=== PATIENT | male | born 1995 ===

== ENCOUNTER 2017-05-29 20:43 | Emergency (ER) | payer OTHER ==
[~2017-05-29] VITALS: Ht 170.2 cm; Wt 77.8 kg
[2017-05-29 20:55] VITALS: TEMP 36.8; Ht 170.2 cm; Wt 77.8 kg
[2017-05-29] MEDS ORDERED: ALBUT/IPRATROP 3MG/0.5MG NEB 3 ML VIAL INH STA (22:11)
--- NOTE | 2017-05-29 22:16 | EMERGENCY ROOM VISIT NOTE ---
History First contact with patient: 21:36 Chief Complaint: ILLNESS Stated Complaint: SORE THROAT, NAUSEA, CHEST CONGESTION History of Present Illness The patient is a 22 year old male who presents to the Emergency Room via private vehicle "sore throat, nausea, chest congestion". The patient states that since yesterday he has been experiencing a sore throat which then progressed into cough and chest congestion. He states that cough is minimally productive. There is painful swallowing with food and water. He feels nauseated with food intake. No abdominal pain. He notes the cough is productive of that consistent with clear mucus. It is episodic, and keeps up at night. He has a nebulizer but no refills for the vials. He notes when he takes a deep breath there is congestion. There is no chest pain, shortness of breath or dyspnea on exertion. There is also clear rhinorrhea. He denies any otalgia, tenderness, headache, fevers or chills. Review of Systems A complete 10-point Review of Systems was discussed with the patient, with pertinent positives and negatives listed in the History of Present Illness. All remaining Review of Systems questions can be considered negative unless otherwise specified. Past Medical/Surgical History Reactive airway Family History No pertinent. Social History Smoking Status: Current Every Day Smoker Patient is a [employer] student and lives locally. Current/Historical Medications Scheduled Ipratropium-Albuterol (Duoneb), 1 TREATMENT INH Q6 Scheduled PRN Benzonatate (Tessalon Perles), 100 MG PO TID PRN for Cough Physical Exam Vital Signs Date Time Temp Pulse Resp B/P (MAP) Pulse Ox O2 Delivery O2 Flow Rate FiO2 05/29/17 23:51 96 18 130/79 99 05/29/17 20:55 36.8 96 18 130/79 99 Room Air Physical Exam VITAL SIGNS - Vital signs and nursing notes were reviewed. Stable. GENERAL -22-year-old male appearing his stated age who is in no acute distress. Communicates well with provider and answers questions appropriately. SKIN - Without rashes. No meningeal or petechial rash. HEAD - NC/AT. EYES - PERRL with EOMI bilaterally. Sclera anicteric. EARS - No deformities of external structures noted on gross examination bilaterally. External auditory canals without discharge or otorrhea. Tympanic membranes pearly avelar without retraction or bulging. No fluid or purulent material visualized behind the TM. Handle of malleus, umbo, cone of light, pars tensa/flaccid all easily visualized. NOSE - Midline and without cyanosis. No epistaxis or purulent drainage noted. MOUTH/OROPHARYNX - Without perioral cyanosis. Buccal mucosa pink and moist and without leukoplakia. Tongue midline with equal elevation of palate bilaterally. No tonsillar hypertrophy, erythema, or exudates noted. Fair dentition noted. NECK - Neck with FROM. Supple to palpation. No lymphadenopathy noted. No nuchal rigidity. LUNGS - Chest wall symmetric without accessory muscle use, intercostals retractions, or central cyanosis. Normal vesicular breath sounds CTA B/L. No wheezes, rales, or rhonchi appreciated. CARDIAC - RRR with S1/S2. No murmur, rubs, or gallops appreciated. ABDOMEN - Abdominal contour normal without pulsations or visible masses. BS normoactive all four quadrants. No tenderness, palpable masses, hepatosplenomegaly, or ascites noted. EXTREMITIES - No clubbing or peripheral cyanosis. No pretibial edema present. + 5/5 strength noted in UE/LE bilaterally. NEUROLOGIC - Cranial nerves II through XII grossly intact. Sensory intact to light touch throughout. PSYCH - A&Ox3 and cooperates fully with examiner. Pt is very pleasant and interacts well with examiner. Medical Decision & Procedures ER Provider Diagnostic Interpretation: TWO VIEW CHEST CLINICAL HISTORY: Chest congestion. FINDINGS: PA and lateral chest radiographs are obtained. No prior studies are available for comparison at the time of dictation. The cardiomediastinal silhouette is unremarkable. The lungs and pleural spaces are clear. An accessory azygous fissure is incidentally noted. There is no pneumothorax. The bony thorax appears intact. IMPRESSION: No active disease in the chest. Electronically signed by: Bobby Puri M.D. 05/29/2017 10:46 PM Dictated Date/Time: 05/29/2017 10:46 PM Medications Administered Medications (Trade) Dose Ordered Sig/Aayush Route Start Time Stop Time Status Last Admin Dose Admin Albuterol/ Ipratropium (Duoneb) 3 ml NOW STAT INH 05/29/17 22:11 05/29/17 22:12 DC 05/29/17 22:19 3 ML Medical Decision Patient was seen and evaluated as above in Room D9. Review was performed of nursing notes and vital signs. After obtaining a thorough history and physical examination the above work up was performed. Chest x-ray negative. Strep test negative. He presents to us today with sore throat, minimal cough and chest congestion. There is no chest pain or shortness of breath. He is likely expressing a viral process. He will be given Tessalon Perles and a nebulizer solution. He was given a breathing treatment here and feeling slightly better. The patient was educated upon management, had questions answered prior to discharge, and was discharged home in good condition. He is to call [facility] the schedule follow-up. In the evaluation and treatment of this patient the following differential diagnoses were entertained: Influenza, pneumonia, viral process, RI, PE, among others. Impression Primary Impression: Viral URI with cough Departure Information Dispostion Home / Self-Care Condition GOOD Prescriptions Ipratropium-Albuterol (DUONEB) 3 Ml Nebu 1 TREATMENT INH Q6 for 3 Days, #12 INHA Prov: Carter Ramos PA-C 05/29/17 Benzonatate (Tessalon Perles) 100 Mg Cap 100 MG PO TID Y for Cough for 5 Days, #15 CAP Prov: Carter Ramos PA-C 05/29/17 Referrals No Doctor, Assigned (PCP) Patient Instructions [facility] Additional Instructions You was seen in the emergency department for cough. This is likely a virus. Chest x-ray shows no pneumonia. Tessalon Perles 1 capsule every 8 hours for your cough. This is only as needed. Please rest and drink plenty of fluids. For your nebulizer, I provided you duo nebs which is every 6 hours only as needed for your cough. Please call [facility] to schedule follow-up. Please return with any new/concerning symptoms.
--- NOTE | 2017-05-29 22:48 | DIAGNOSTIC IMAGING REPORT ---
TWO VIEW CHEST CLINICAL HISTORY: Chest congestion. FINDINGS: PA and lateral chest radiographs are obtained. No prior studies are available for comparison at the time of dictation. The cardiomediastinal silhouette is unremarkable. The lungs and pleural spaces are clear. An accessory azygous fissure is incidentally noted. There is no pneumothorax. The bony thorax appears intact. IMPRESSION: No active disease in the chest. Electronically signed by: Bobby Puri M.D. 05/29/2017 10:46 PM Dictated Date/Time: 05/29/2017 10:46 PM
[2017-05-29] MEDS ORDERED: IPRASOL4 INH (23:30)
[2017-05-29] MEDS ORDERED: BENZ100C84 PO (23:30)
[2017-05-29 23:51] VITALS: BP 130/79; PULSE 96; O2SAT 99
== END 2017-05-29 23:39 | disposition home or self-care (01) ==
LOC: C.EDB 20:45 → C.EDD 23:39
DX: J06.9 Acute upper respiratory infection, unspecified (principal); R05 Cough; F17.210 Nicotine dependence, cigarettes, uncomplicated